=== PATIENT | female | born 1935 | race African-American/Black ===

== ENCOUNTER 2016-10-16 17:32 | Inpatient (IN) | payer OTHER ==
[~2016-10-16] VITALS: Ht 172.7 cm; Wt 134.1 kg
--- NOTE | ~2016-10-16 | EKG ---
[address] [address] ELECTROCARDIOGRAM REPORT Name: GERALD PABONESSA Miya Room #: 170-2 ADM IN M.R.#: [id number] Admission: 10/16/16 Attend Phys: Claudy Lopez MD Discharge: Date of : 37 Report #: [id number] THIS REPORT FOR: //name// [facility] ED Test Date: 2016-10-16 Test Time: 17:37:22 Pat Name: KAROL PABON Department: Room: 170 Gender: F [employer]: [id number] : 1935 Requested By: Katrina Clancy Order Number: [id number] MD: Carlos Navarro Measurements Intervals [place] Rate: 68 P: 28 CO: 265 QRS: -19 QRSD: 154 T: 31 QT: 441 QTc: 470 Interpretive Statements Sinus rhythm Atrial premature complex Prolonged [place] interval Right bundle branch block Compared to ECG 04/30/2016 11:19:53 First degree AV block now present Sinus tachycardia no longer present Electronically Signed On 10-16-2016 22:11:00 CDT by Carlos Navarro [email or web address] <ELECTRONICALLY SIGNED> By: Carlos Navarro MD 10/16/16 2211 1737 1737 Carlos Navarro MD /EPI
[2016-10-16 17:32] VITALS: BP 147/75
[~2016-10-16 17:32] MED LIST: ACETAMINOPHEN325 M1 PO; ADVAIR 500-501 EACH INH; ALBUTEROL2.5 MG/0.5 INH; ALBUTEROL2.5 MG/31; ALBUTEROL2.5 MG/32 INH; AMBIEN 5 MG TABL5 M1 PO; AMOXICILLIN 50500 MG PO; ANTIFUNGAL CREA28 GM TOP; ARTIFICIAL TEAR15 M1 OPHTHALMIC; ASPIRIN EC81 M1 PO; ATIVAN0.5 MG PO; AUGMENTIN 875875 MG PO; BAYER CHEWABLE81 MG PO; BIOFREEZE118 ML TP; BISACODYL SUPP10 MG RECTAL; BREO ELLIPTA 21 EACH IH; CALMOSEPTINE OI71 GM TOP; CARDIZEM CD240 MG PO; CEFTIN 250250 MG/52 PO; CEFTIN500 MG PO; CEPACOL SORE T1 EAC7 PO; CEPASTAT CHERR18 TA2 PO; CLONIDINE0.1 PO; CODEINE SULFATE30 MG PO; COLACE100 MG PO; DEMADEX20 MG PO; DETROL LA4 MG PO; DEX4 GLUCOSE1 EACH PO; DICLOFENAC-MIS1 EAC1 PO; DOXYCYCLINE 10100 MG PO; DUONEB 2.5-0.5 M3 ML INH; ENOXAPARIN30 MG/0.3 SUBQ; ENOXAPARIN40 MG/0.1 SUBQ; ENOXAPARIN40 MG/0.4 SQ; FISH OIL 1,001000 M2 PO; FLEXERIL PO; FLONASE 0.05%50 MCG NASAL; GERI-MOX ANTAC355 ML; GLUCAGEN1 M2 SUBQ; GLUCOPHAGE XR500 MG PO; GLUCOPHAGE1000 MG PO; GLUCOPHAGE500 MG PO; GLUCOSE 40% GEL15 GM PO; GLUCOSE GEL38 GM PO; GLYCOLAX POWDER17 G1 PO; HUMALOG100 UNIT/1 SUBQ; HYDROCODON-ACE1 EAC7 PO; HYDROCODONE-AP1 EAC6 PO; HYDROXYZINE HCL25 M1 PO; I-CAPS AREDS S1 EACH PO; IRON325 PO; JUVEN PACKET1 EACH; LACTULOSE10 GM/153 PO; LANTUS100 UNIT/M SUBQ; LASIX 40 MG TAB40 M1 PO; LEVAQUIN 500 M500 M1 PO; LEVEMIR SUBQ; LEVOTHROID100 MC1 PO; LEVOTHYROXINE0.2 M1; LEVOXYL100 MCG PO; LIDODERM 5%1 PATCH TRANSDERM; LOPRESSOR25 PO; MACROBID 100 M100 M1 PO; MAGOX 400400 MG PO; METFORMIN HCL500 MG PO; MILK OF MA2400 MG/10 PO; MIRALAX255 GM PO; MOM PO; MONTELUKAST SOD10 MG PO; MUCINEX TA600 MG/TA2 PO; MULTI VITAMIN1 EACH PO; MULTIVITAMINS; NEURONTIN 300300 M1 PO; NEURONTIN600 MG; NEXIUM40 MG PO; NORCO 10-325 T1 EACH PO; NORVASC 2.5 MG2.5 M1 PO; NOVOLOG100 UNIT/1 SUBQ; NYSTATIN 100,0015 G1 TOP; NYSTATIN 100,0015 GM TOP; OCUVITE EYE +1 EACH PO; OMEPRAZOLE 20 M20 M1 PO; OSELB75 PO; OXYBUTYNIN 5 MG5 M1 PO; OXYBUTYNIN CHLO10 MG; PEPCID20 MG PO; POTASSIUM20 PO; PREDNISONE 10 M10 MG PO; PREDNISONE 20 M20 M1 PO; PREDNISONE 20 M20 MG PO; PROAIR RESPICL90 MCG PO; RESTASIS1 EACH OPHTHALMIC; ROBITUSSIN100 MG/53 PO; SENOKOT-S1 TA1 PO; SIMETHICON CHEW80 M1 PO; SINGULAIR 10 MG10 MG PO; SKIN PROTECTAN113 GM TOP; SPIRIVA INH; TESSALON PERLE100 MG PO; THEOPHYLLINE E100 MG; THEOPHYLLINE S200 M1 PO; TOBRADEX EYE DRO5 ML OPHTHALMIC; TOPROL XL100 MG PO; TRAMADOL HCL50 MG PO; TUMS CHEWA500 MG/11 PO; UNIPHYL400 MG PO; VALIUM5 MG; VESICARE 5 MG TA5 MG PO; VITAMIN D-32000 UNIT PO; VITAMIN E400 UNIT PO; VITAMINC500 PO; VOLTAREN GEL 1100 G2 TOP; ZINC SULFATE 2220 M1; [UNRECOGNIZED DRUG - OTHER] TOP
[2016-10-16 18:19] LABS: URINE BILIRUBIN NEGATIVE (Negative); URINE BLOOD NEGATIVE (Negative); URINE COLOR YELLOW; URINE GLUCOSE-RANDOM* NEGATIVE (Negative); URINE KETONES NEGATIVE (Negative); URINE NITRITE NEGATIVE (Negative); URINE PROTEIN (DIPSTICK) NEGATIVE (Negative); URINE SPECIFIC GRAVITY <= 1.005 (1.003-1.035); URINE UROBILINOGEN 0.2 E.U./dl (0.2-1.0)
[2016-10-16 18:28] LABS: BACTERIA >30 Many /HPF (None Seen); CASTS None Seen /LPF (None Seen); CRYSTALS None Seen /LPF (None Seen); SQUAMOUS >10 Many /LPF (0-3); URINE RBC 0-2 Rare /HPF (0-2); URINE WBC 6-15 Few /HPF (0-5)
[2016-10-16 18:55] LABS: ABSOLUTE NEUTROPHILS 4.9 thou/uL (1.4-8.2); BASOPHILS 0.3 % (0.0-2.0); EOSINOPHILS 2.1 % (0.0-3.0); HEMATOCRIT 37.4 % (37.0-47.0); HEMOGLOBIN 12.2 gm/dL (12.0-15.0); LYMPHOCYTES 28.7 % (24.0-44.0); MCH 27.9 pg (26.0-34.0); MCHC 32.6 g/dL (28.0-37.0); MCV 85.6 fL (80.0-100.0); MONOCYTES 8.2 % (1.0-8.0); PLATELET COUNT 246 thou/uL (150-400); POLYS 60.7 % (36.0-66.0); RBC 4.37 mil/uL (4.20-5.00); WBC 8.1 thou/uL (4.0-11.0)
[2016-10-16 18:57] LABS: MANUAL DIFF NO
[2016-10-16 19:07] LABS: ANION GAP 8 mmol/L (7-16); BUN 12 mg/dL (7-18); CALCIUM 10.4 mg/dL (8.5-10.1); CHLORIDE 98 mmol/L (98-107); CO2 29 mmol/L (21-32); CREATININE 1.3 mg/dL (0.6-1.0); GLUCOSE 110 mg/dL (74-106); POTASSIUM 3.9 mmol/L (3.5-5.1); SODIUM 135 mmol/L (136-145)
[2016-10-16 19:14] LABS: ALBUMIN 3.4 g/dL (3.4-5.0); ALKALINE PHOSPHATASE 82 U/L (46-116); SGOT 19 U/L (15-37); SGPT 29 U/L (30-65); TOTAL BILIRUBIN 0.2 mg/dL (<0.1-1.0); TROPONIN-I < 0.04 ng/mL (<0.04-0.07)
[2016-10-16 22:26] VITALS: BP 138/63
[2016-10-17] MEDS ORDERED: THEOPHYLLINE E100 MG PO (00:09)
[2016-10-17] MEDS ORDERED: GUAIFENESIN ER600 MG PO (00:13)
[2016-10-17] MEDS ORDERED: FISH OIL 1,001000 M2 PO (00:16)
[2016-10-17] MEDS ORDERED: NEURONTIN 300300 M1 PO (00:22)
[2016-10-17] MEDS ORDERED: LIDODERM 5%1 PATC1 TRANSDERM (00:26)
[2016-10-17] MEDS ORDERED: NITROGLYCERIN0.4 MG SUBLING (00:28)
[2016-10-17] MEDS ORDERED: LOPERAMIDE 2 MG2 M1 PO (00:29)
[2016-10-17] MEDS ORDERED: ONDANSETRON HCL4 M2 PO (00:31)
[2016-10-17 04:00] VITALS: BP 117/66
[2016-10-17 04:18] LABS: CALCIUM 9.8 mg/dL (8.5-10.1); CREATININE 1.2 mg/dL (0.6-1.0); POTASSIUM 3.9 mmol/L (3.5-5.1)
[2016-10-17 07:03] VITALS: BP 127/64
[2016-10-17 16:16] VITALS: BP 137/75
[2016-10-17 20:15] VITALS: BP 124/52
[2016-10-18 03:27] VITALS: BP 147/83
[2016-10-18 06:29] LABS: BASOPHILS 0.4 % (0.0-2.0); EOSINOPHILS 2.6 % (0.0-3.0); HEMATOCRIT 36.9 % (37.0-47.0); HEMOGLOBIN 12.2 gm/dL (12.0-15.0); LYMPHOCYTES 34.2 % (24.0-44.0); MCH 28.2 pg (26.0-34.0); MCHC 33.1 g/dL (28.0-37.0); MCV 85.2 fL (80.0-100.0); MONOCYTES 9.8 % (1.0-8.0); PLATELET COUNT 239 thou/uL (150-400); RBC 4.33 mil/uL (4.20-5.00); WBC 5.7 thou/uL (4.0-11.0)
[2016-10-18 06:41] LABS: CALCIUM 10.2 mg/dL (8.5-10.1); CREATININE 1.2 mg/dL (0.6-1.0); POTASSIUM 4.3 mmol/L (3.5-5.1)
[2016-10-18 06:55] LABS: MANUAL DIFF NO
[2016-10-18 08:00] VITALS: BP 131/77
[2016-10-18 16:00] VITALS: BP 131/83
[2016-10-18 19:28] VITALS: BP 154/80
[2016-10-19 03:43] VITALS: BP 142/71
[2016-10-19 03:56] LABS: ABSOLUTE NEUTROPHILS 3.9 thou/uL (1.4-8.2); BASOPHILS 0.2 % (0.0-2.0); EOSINOPHILS 2.7 % (0.0-3.0); HEMATOCRIT 35.8 % (37.0-47.0); HEMOGLOBIN 11.8 gm/dL (12.0-15.0); LYMPHOCYTES 30.4 % (24.0-44.0); MCHC 33.1 g/dL (28.0-37.0); MCV 84.6 fL (80.0-100.0); MONOCYTES 9.9 % (1.0-8.0); PLATELET COUNT 238 thou/uL (150-400); POLYS 56.8 % (36.0-66.0); RBC 4.23 mil/uL (4.20-5.00); RDW 14.9 % (10.5-14.5); WBC 6.9 thou/uL (4.0-11.0)
[2016-10-19 03:58] LABS: MANUAL DIFF NO
[2016-10-19 04:08] LABS: CALCIUM 10.1 mg/dL (8.5-10.1); CREATININE 1.3 mg/dL (0.6-1.0); MAGNESIUM 2.1 mg/dL (1.8-2.4); POTASSIUM 4.2 mmol/L (3.5-5.1)
[2016-10-19 07:52] VITALS: BP 151/75
[2016-10-19] MEDS ORDERED: LANTUS100 UNIT/M SUBQ (11:35)
[2016-10-19] MEDS ORDERED: ANTIVERT25 MG PO ×2 (11:35)
[2016-10-19] MEDS ORDERED: PROBIOTIC1 EAC1 PO (11:35)
[2016-10-19] MEDS ORDERED: AUGMENTIN 875875 MG PO (11:35)
[2016-10-19] MEDS ORDERED: MUPIROCIN22 GM NASAL (11:52)
[2016-10-19] MEDS ORDERED: MACROBID 100 M100 M1 PO (12:03)
[2016-10-19 14:06] VITALS: BP 131/69
== END 2016-10-19 14:35 | DRG 690 ==
LOC: ER 17:32 → EROBS 20:24 → 3N 20:24
PROVIDERS: Internal Medicine Endocrinology, Diabetes & Metabolism; Nurse Practitioner; Nurse Practitioner Acute Care; Physician Assistant
DX: N39.0 Urinary tract infection, site not specified (principal); N17.9 Acute kidney failure, unspecified; I50.32 Chronic diastolic (congestive) heart failure; J96.10 Chronic respiratory failure, unspecified whether with hypoxia or hypercapnia; E86.0 Dehydration; E89.0 Postprocedural hypothyroidism; Z96.651 Presence of right artificial knee joint; K21.9 Gastro-esophageal reflux disease without esophagitis; M19.90 Unspecified osteoarthritis, unspecified site; F32.9 Major depressive disorder, single episode, unspecified; E11.40 Type 2 diabetes mellitus with diabetic neuropathy, unspecified; J44.9 Chronic obstructive pulmonary disease, unspecified; B96.20 Unspecified Escherichia coli [E. coli] as the cause of diseases classified elsewhere; N18.3 Chronic kidney disease, stage 3 (moderate); E11.22 Type 2 diabetes mellitus with diabetic chronic kidney disease; Z79.899 Other long term (current) drug therapy; Z87.891 Personal history of nicotine dependence; Z98.41 Cataract extraction status, right eye; Z88.2 Allergy status to sulfonamides; Z98.42 Cataract extraction status, left eye; Z85.3 Personal history of malignant neoplasm of breast; Z90.710 Acquired absence of both cervix and uterus; Z88.8 Allergy status to other drugs, medicaments and biological substances
CPT/HCPCS: 10096

== ENCOUNTER 2016-12-02 03:48 | Emergency (ER) | payer OTHER ==
[~2016-12-02] VITALS: Ht 175.3 cm; Wt 136.1 kg
--- NOTE | ~2016-12-02 | EKG ---
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 MCKEON : 1935 Requested By: Uriel Haney Order Number: [id number] MD: Alexis Lee Measurements Intervals [place] Rate: 89 P: 65 [place]: 254 QRS: -24 QRSD: 160 T: 33 QT: 387 QTc: 471 Interpretive Statements Sinus rhythm Atrial premature complex Prolonged [place] interval Right bundle branch block Compared to ECG 10/16/2016 17:37:22 No significant changes Electronically Signed On 12-04-2016 9:25:08 CDT by Alexis Lee [email or web address] <ELECTRONICALLY SIGNED> By: Alexis Lee MD, [facility] 12/04/16 0925 0 0 Alexis Lee MD, [facility] /EPI
[~2016-12-02 03:48] MED LIST changes: +ANTIVERT25 MG PO; +GUAIFENESIN ER600 MG PO; +LIDODERM 5%1 PATC1 TRANSDERM; +LOPERAMIDE 2 MG2 M1 PO; +MUPIROCIN22 GM NASAL; +NITROGLYCERIN0.4 MG SUBLING; +ONDANSETRON HCL4 M2 PO; +PROBIOTIC1 EAC1 PO; +THEOPHYLLINE E100 MG PO
[2016-12-02] MEDS ORDERED: CEFUROXIME500 MG (04:10)
[2016-12-02] MEDS ORDERED: DUONEB 2.5-0.5 M3 ML INH (04:11)
[2016-12-02] MEDS ORDERED: PREDNISONE 10 M10 MG PO (04:11)
[2016-12-02] MEDS ORDERED: MUCINEX TA600 MG/TA2 PO (04:11)
[2016-12-02] MEDS ORDERED: KRISTALOSE20 GM PO (04:13)
[2016-12-02] MEDS ORDERED: OCUVITE EYE +1 EACH PO (04:21)
[2016-12-02 04:29] LABS: ABSOLUTE NEUTROPHILS 8.2 thou/uL (1.4-8.2); BASOPHILS 0.8 % (0.0-2.0); EOSINOPHILS 0.6 % (0.0-3.0); HEMATOCRIT 37.7 % (37.0-47.0); HEMOGLOBIN 12.5 gm/dL (12.0-15.0); LYMPHOCYTES 23.7 % (24.0-44.0); MCH 27.7 pg (26.0-34.0); MCHC 33.1 g/dL (28.0-37.0); MCV 83.5 fL (80.0-100.0); MONOCYTES 5.2 % (1.0-8.0); PLATELET COUNT 264 thou/uL (150-400); POLYS 69.7 % (36.0-66.0); RBC 4.51 mil/uL (4.20-5.00); RDW 16.2 % (10.5-14.5); WBC 12.9 thou/uL (4.0-11.0)
[2016-12-02 04:31] LABS: MANUAL DIFF NO
[2016-12-02 04:35] LABS: ANION GAP 14 mmol/L (7-16); BUN 17 mg/dL (7-18); CALCIUM 10.6 mg/dL (8.5-10.1); CHLORIDE 96 mmol/L (98-107); CO2 24 mmol/L (21-32); CREATININE 1.5 mg/dL (0.6-1.0); GLUCOSE 176 mg/dL (74-106); POTASSIUM 4.4 mmol/L (3.5-5.1); SODIUM 134 mmol/L (136-145)
[2016-12-02] MEDS ORDERED: ARTIFICIAL TEA1 EACH OP (04:36)
[2016-12-02 04:40] LABS: APTT 20.1 Seconds (24.5-32.8); PROTIME 10.4 Seconds (9.3-11.4)
[2016-12-02] MEDS ORDERED: TESSALON PERLE100 M1 PO (04:40)
[2016-12-02 04:44] LABS: ALBUMIN 3.8 g/dL (3.4-5.0); ALKALINE PHOSPHATASE 81 U/L (46-116); MAGNESIUM 1.5 mg/dL (1.8-2.4); SGOT 26 U/L (15-37); SGPT 29 U/L (30-65); TOTAL BILIRUBIN 0.4 mg/dL (<0.1-1.0); TOTAL PROTEIN 7.7 g/dL (6.4-8.2); TROPONIN-I < 0.04 ng/mL (<0.04-0.07)
[2016-12-02] MEDS ORDERED: MAG-OXIDE400 MG PO (05:32)
[2016-12-02] MEDS ORDERED: PREDNISONE 20 M20 MG PO (05:32)
[2016-12-02] MEDS ORDERED: ZPAK PO (05:32)
== END 2016-12-02 20:33 | disposition home or self-care (01) ==
LOC: ER 03:48
PROVIDERS: Emergency Medicine
DX: J20.9 Acute bronchitis, unspecified (principal); J45.909 Unspecified asthma, uncomplicated; F32.9 Major depressive disorder, single episode, unspecified; K21.9 Gastro-esophageal reflux disease without esophagitis; E03.9 Hypothyroidism, unspecified; J44.9 Chronic obstructive pulmonary disease, unspecified; I50.9 Heart failure, unspecified; E11.9 Type 2 diabetes mellitus without complications; G62.9 Polyneuropathy, unspecified; Z85.3 Personal history of malignant neoplasm of breast; Z90.710 Acquired absence of both cervix and uterus; Z87.440 Personal history of urinary (tract) infections; Z85.53 Personal history of malignant neoplasm of renal pelvis; Z88.8 Allergy status to other drugs, medicaments and biological substances; Z88.2 Allergy status to sulfonamides; Z88.6 Allergy status to analgesic agent; Z87.891 Personal history of nicotine dependence

== ENCOUNTER 2016-12-04 02:39 | Inpatient (IN) | payer OTHER ==
[~2016-12-04] VITALS: Ht 172.7 cm; Wt 128.0 kg
[2016-12-04] VITALS (7 sets, daily range): BP systolic 129–161; BP diastolic 49–85
--- NOTE | ~2016-12-04 | S ---
[facility] [place] [address] SURGICAL PATH RPT PROCEDURE Name: KAROL PABON Room #: 455-P [facility] IN M.R.#: [id number] Admission: 12/04/16 Date of : 37 Discharge: Report #: [id number] Path Case #: [id number] PATHOLOGY REPORT COLLECTION DATE: 12/05/2016 RECEIVED DATE: 12/06/2016 SUBMITTING PHYS: Dr. Eileen Millan OTHER PHYS: Dr. Neri Kerr SPECIMEN(S) RECEIVED: A.Polypectomy at ascending colon x3 B.Bx of polyp at transverse * * * * * * * * * * * * FINAL DIAGNOSIS: A. Polyp, at ascending colon, endoscopic biopsy: - Tubular adenoma. - Negative for high-grade dysplasia. B. Polyp, at transverse, endoscopic biopsy: - Compatible with hyperplastic polyp. - Negative for dysplasia. (IUV:lety; 12/07/2016) PATHOLOGIST: Angie Pinto M.D. REPORT ELECTRONICALLY SIGNED BY: Angie Pinto M.D. DATE/TIME: 12/07/2016 16:36 * * * * * * * * * * * * GROSS PATHOLOGY: A. Received in formalin labeled "Karol Pabon, polyp at ascending colon," is a 0.5 x 0.4 x 0.4 cm polypoid piece of [place] soft tissue. The margin is inked and the tissue is sectioned perpendicular to the margin and submitted in its entirety in cassette A1. Additionally received in formalin labeled "Karol Pabon, polyp at ascending colon," is a segment of [place]on soft tissue measuring 0.4 cm in maximum dimension. The specimen is submitted entirely in cassette A1. After filtration of the specimen, no additional tissue was recovered. B. Received in formalin labeled "Karol Pabon, BX of polyp at transverse," is a segment of [place] soft tissue measuring 0.5 cm in maximum dimension. The specimen is submitted entirely in cassette B1. (TSD; 12/06/2016) [address] [address] SURGICAL PATH RPT PROCEDURE Name: KAROL PABON Room #: 455-P [facility] IN M.R.#: [id number] Admission: 12/04/16 Date of : 37 Discharge: Report #: [id number] Path Case #: [id number] CLINICAL HISTORY: Pre-OP DX: GI bleed, anemic Post-OP DX: Diverticulosis, ascending colon polyps INITIAL CPT CODE(S): A; 17111 B; 28836 Professional services performed by [facility] [address], [place] [address] Technical services performed by [facility] at [address] [place] [address], [address], [place] [address]. [facility] [address] [address] [place] [address] PHONE: [phone] DIRECTOR: Myron W. Eliazar, M.D. * * * END OF REPORT * * *
--- NOTE | ~2016-12-04 | P ---
[facility] [place] [address] PROCEDURE REPORT Name: KAROL PABON Room #: 455-P ADM IN M.R.#: [id number] Admission: 12/04/16 Attend Phys: Patel Snow MD Discharge: Date of : 37 Report #: [id number] THIS REPORT FOR: //name// CC: Venkata Kerr MD PROCEDURE: Colonoscopy with snare polypectomies and biopsies. She is a patient of Dr. Patel Snow. PRIMARY DOCTOR: Rohini Kerr MD INDICATION FOR PROCEDURE: The patient has had hematochezia that is painless, uncertain etiology. Informed consent for this procedure was obtained prior to the administration of any medication. The risks of the procedure, which include bleeding, perforation, infection, complications of sedation and the possibility I could miss something have been explained to the patient and she has indicated her consent by signing. Propofol was slowly titrated before and during this procedure for the patient comfort by the anesthesia service. The [employer] colonoscope was introduced through the anal sphincter and advanced under direct visualization to the ileocecal valve. Findings are noted on withdrawal of the scope. A quick peek into the distal ileum showed that there was no blood up in this structure. There is some red blood that is scattered throughout the entire colon. We tried to remove as much of this we could and were successful in clearing most of the areas out. Her colonic prep was poor in some areas and large mucosa lesions could have been missed, but for the most part, I think we were able to move the stool around and visualize the mucosa that was underneath it. In the cecum, the mucosa was normal. Ascending colon, multiple uncomplicated diverticula noted throughout the colon starting in the proximal ascending colon. There were 3 sessile polyps in the distal ascending colon that were removed in toto with a hot snare and sent to pathology lab. Good hemostasis was noted after all those polypectomies. The largest, which was 10 mm in size was lost after it was removed in some residual stool and I could not locate it again to remove it. The hepatic flexure itself appears normal. Transverse colon and the proximal transverse colon, there is a small 3-4 mm polyp removed in toto with the regular biopsy forceps and sent to pathology lab. Good hemostasis was noted after that polypectomy. The remaining transverse colonic mucosa appears normal except for uncomplicated diverticulosis. Sigmoid colon, normal mucosa. [address] [address] PROCEDURE REPORT Name: KAROL PABON Room #: 455-P [facility] IN [facility]#: [id number] Admission: 12/04/16 Attend Phys: Patel Snow MD Discharge: Date of : 37 Report #: [id number] Descending colon, uncomplicated diverticulosis was noted. It should be noted that there was some brighter red blood from the mid transverse through the splenic flexure. Descending colon, multiple uncomplicated diverticula noted. Sigmoid colon, multiple uncomplicated diverticula are noted. Rectum, normal mucosa. Retroflex view did not reveal any abnormalities. Scope was withdrawn. The patient went to the recovery area in stable condition. She tolerated the procedure well. IMPRESSION: 1. uncomplicated diverticulosis coli. 2. Colon polyps removed as above times 4 and sent to pathology with the loss of the large 10 mm polyp in the ascending colon. I saw no evidence of colitis. There was blood in the diverticulosis and it is difficult to know, which one was actually bleeding because there was no active bleeding during this colonoscopy. My recommendations were to monitor her closely. We will await the path report and monitor her H and H and stools. Thank you very much once again for allowing me to participate in her care. <ELECTRONICALLY SIGNED> By: Eileen Millan DO 12/06/16 0541 1802 2347 Eileen Millan DO /nt
--- NOTE | ~2016-12-04 | EKG ---
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 12/04/16 1754 D: [id number] 2 Alexis Lee MD, [facility] /EPI
[~2016-12-04 02:39] MED LIST changes: +ARTIFICIAL TEA1 EACH OP; +CEFUROXIME500 MG; +KRISTALOSE20 GM PO; +MAG-OXIDE400 MG PO; +TESSALON PERLE100 M1 PO; +ZPAK PO
[2016-12-04 03:18] LABS: ABSOLUTE NEUTROPHILS 9.4 thou/uL (1.4-8.2); BASOPHILS 0.3 % (0.0-2.0); HEMATOCRIT 34.7 % (37.0-47.0); HEMOGLOBIN 11.3 gm/dL (12.0-15.0); LYMPHOCYTES 17.4 % (24.0-44.0); MCH 27.7 pg (26.0-34.0); MCHC 32.6 g/dL (28.0-37.0); MCV 84.8 fL (80.0-100.0); MONOCYTES 8.9 % (1.0-8.0); PLATELET COUNT 304 thou/uL (150-400); POLYS 73.4 % (36.0-66.0); RBC 4.09 mil/uL (4.20-5.00); RDW 16.6 % (10.5-14.5); WBC 12.9 thou/uL (4.0-11.0)
[2016-12-04 03:20] LABS: MANUAL DIFF NO
[2016-12-04 03:48] LABS: CREATININE 1.5 mg/dL (0.6-1.0); DIRECT BILIRUBIN 0.1 mg/dL (<0.1-0.3); TOTAL BILIRUBIN 0.3 mg/dL (<0.1-1.0)
[2016-12-04 03:49] LABS: ALBUMIN 3.5 g/dL (3.4-5.0); TOTAL PROTEIN 6.7 g/dL (6.4-8.2)
[2016-12-04 04:08] LABS: POTASSIUM 4.6 mmol/L (3.5-5.1)
[2016-12-04 04:59] LABS: URINE BILIRUBIN NEGATIVE (Negative); URINE BLOOD NEGATIVE (Negative); URINE COLOR YELLOW; URINE GLUCOSE-RANDOM* NEGATIVE (Negative); URINE KETONES NEGATIVE (Negative); URINE NITRITE POSITIVE (Negative); URINE PROTEIN (DIPSTICK) NEGATIVE (Negative); URINE UROBILINOGEN 0.2 E.U./dl (0.2-1.0)
[2016-12-04 05:07] LABS: BACTERIA >30 Many /HPF (None Seen); CASTS None Seen /LPF (None Seen); CRYSTALS None Seen /LPF (None Seen); SQUAMOUS None Seen /LPF (0-3); URINE RBC 0-2 Rare /HPF (0-2); URINE WBC 0-5 Rare /HPF (0-5)
[2016-12-04 06:02] LABS: HEMATOCRIT 33.8 % (37.0-47.0); HEMOGLOBIN 11.1 gm/dL (12.0-15.0)
[2016-12-04 10:17] LABS: APTT 25.1 Seconds (24.5-32.8); INR 1.1
[2016-12-04 12:18] LABS: HEMATOCRIT 31.3 % (37.0-47.0); HEMOGLOBIN 10.5 gm/dL (12.0-15.0)
[2016-12-04 18:28] LABS: HEMATOCRIT 31.1 % (37.0-47.0); HEMOGLOBIN 10.4 gm/dL (12.0-15.0)
[2016-12-05 00:19] LABS: HEMATOCRIT 30.6 % (37.0-47.0); HEMOGLOBIN 10.1 gm/dL (12.0-15.0)
[2016-12-05 03:22] VITALS: BP 137/71
[2016-12-05 08:26] VITALS: BP 150/73
[2016-12-05 12:24] VITALS: BP 129/55
[2016-12-05 19:31] VITALS: BP 125/73
[2016-12-06 04:16] VITALS: BP 126/63
[2016-12-06 06:14] LABS: HEMATOCRIT 27.7 % (37.0-47.0); HEMOGLOBIN 9.3 gm/dL (12.0-15.0); MCH 28.3 pg (26.0-34.0); MCHC 33.5 g/dL (28.0-37.0); MCV 84.5 fL (80.0-100.0); RBC 3.28 mil/uL (4.20-5.00); RDW 16.1 % (10.5-14.5); WBC 8.8 thou/uL (4.0-11.0)
[2016-12-06 06:26] LABS: CALCIUM 9.3 mg/dL (8.5-10.1); CREATININE 1.1 mg/dL (0.6-1.0); POTASSIUM 3.9 mmol/L (3.5-5.1)
[2016-12-06 09:50] VITALS: BP 128/65
[2016-12-06 18:27] VITALS: BP 135/65
[2016-12-06 20:30] VITALS: BP 179/71
[2016-12-07 06:05] LABS: HEMATOCRIT 25.3 % (37.0-47.0); HEMOGLOBIN 8.5 gm/dL (12.0-15.0); MCH 28.5 pg (26.0-34.0); MCHC 33.5 g/dL (28.0-37.0); MCV 85.2 fL (80.0-100.0); RBC 2.97 mil/uL (4.20-5.00); RDW 16.1 % (10.5-14.5); WBC 7.8 thou/uL (4.0-11.0)
[2016-12-07 06:14] LABS: CALCIUM 9.1 mg/dL (8.5-10.1); CREATININE 1.2 mg/dL (0.6-1.0); POTASSIUM 4.1 mmol/L (3.5-5.1)
[2016-12-07 07:57] VITALS: BP 168/81
[2016-12-07 11:11] VITALS: BP 157/77
[2016-12-07 15:30] VITALS: BP 138/60
[2016-12-07 18:59] VITALS: BP 142/75
[2016-12-08 04:40] VITALS: BP 145/75
[2016-12-08 06:01] LABS: HEMATOCRIT 26.3 % (37.0-47.0); HEMOGLOBIN 8.5 gm/dL (12.0-15.0); MCHC 32.5 g/dL (28.0-37.0); MCV 86.1 fL (80.0-100.0); RBC 3.05 mil/uL (4.20-5.00); RDW 16.1 % (10.5-14.5); WBC 8.1 thou/uL (4.0-11.0)
[2016-12-08 06:12] LABS: CALCIUM 9.4 mg/dL (8.5-10.1); CREATININE 1.1 mg/dL (0.6-1.0); POTASSIUM 3.8 mmol/L (3.5-5.1)
[2016-12-08 07:25] VITALS: BP 157/95
[2016-12-08 12:34] VITALS: BP 128/55
[2016-12-08 16:28] VITALS: BP 114/56
[2016-12-08 19:15] VITALS: BP 131/78
[2016-12-09 04:08] VITALS: BP 110/85
[2016-12-09 05:26] LABS: HEMATOCRIT 27.6 % (37.0-47.0); MCHC 32.6 g/dL (28.0-37.0); MCV 85.9 fL (80.0-100.0); RBC 3.21 mil/uL (4.20-5.00); RDW 16.5 % (10.5-14.5); WBC 7.8 thou/uL (4.0-11.0)
[2016-12-09 05:48] LABS: CALCIUM 9.4 mg/dL (8.5-10.1); CREATININE 1.1 mg/dL (0.6-1.0); POTASSIUM 3.5 mmol/L (3.5-5.1)
[2016-12-09 08:08] VITALS: BP 124/51
[2016-12-09 15:30] VITALS: BP 116/49
[2016-12-09 21:22] VITALS: BP 145/71
[2016-12-10 00:39] VITALS: BP 129/56
[2016-12-10 04:28] VITALS: BP 164/68
[2016-12-10 06:24] LABS: HEMATOCRIT 28.6 % (37.0-47.0); HEMOGLOBIN 9.4 gm/dL (12.0-15.0); MCHC 32.8 g/dL (28.0-37.0); MCV 85.6 fL (80.0-100.0); RBC 3.34 mil/uL (4.20-5.00); RDW 16.6 % (10.5-14.5); WBC 7.1 thou/uL (4.0-11.0)
[2016-12-10 06:33] LABS: CALCIUM 9.5 mg/dL (8.5-10.1); CREATININE 1.2 mg/dL (0.6-1.0); POTASSIUM 3.9 mmol/L (3.5-5.1)
[2016-12-10 08:09] VITALS: BP 159/69
[2016-12-10 11:55] VITALS: BP 132/67
[2016-12-10] MEDS ORDERED: LEVAQUIN 500 M500 M2 PO (12:27)
== END 2016-12-10 16:19 | DRG 377 ==
LOC: ER 02:39 → 4W 04:29 → EROBS 04:29 → 4W 05:16
PROVIDERS: Emergency Medicine; Hospitalist; Nurse Practitioner Acute Care
DX: K57.31 Diverticulosis of large intestine without perforation or abscess with bleeding (principal); N17.0 Acute kidney failure with tubular necrosis; J96.11 Chronic respiratory failure with hypoxia; E87.2 Acidosis; D12.2 Benign neoplasm of ascending colon; D12.3 Benign neoplasm of transverse colon; E11.22 Type 2 diabetes mellitus with diabetic chronic kidney disease; N18.3 Chronic kidney disease, stage 3 (moderate); E89.0 Postprocedural hypothyroidism; E89.2 Postprocedural hypoparathyroidism; F32.9 Major depressive disorder, single episode, unspecified; M19.90 Unspecified osteoarthritis, unspecified site; E11.40 Type 2 diabetes mellitus with diabetic neuropathy, unspecified; K21.9 Gastro-esophageal reflux disease without esophagitis; I50.9 Heart failure, unspecified; K64.8 Other hemorrhoids; Z96.642 Presence of left artificial hip joint; J44.9 Chronic obstructive pulmonary disease, unspecified; Z87.891 Personal history of nicotine dependence; Z90.710 Acquired absence of both cervix and uterus; Z98.42 Cataract extraction status, left eye; Z98.41 Cataract extraction status, right eye; Z88.2 Allergy status to sulfonamides; Z88.8 Allergy status to other drugs, medicaments and biological substances; Z86.711 Personal history of pulmonary embolism; Z79.84 Long term (current) use of oral hypoglycemic drugs; Z79.51 Long term (current) use of inhaled steroids; Z79.4 Long term (current) use of insulin; Z79.899 Other long term (current) drug therapy
CPT/HCPCS: 10045; 62110; 62900; 70005

== ENCOUNTER 2017-05-14 15:46 | Emergency (ER) | payer OTHER ==
[~2017-05-14] VITALS: Ht 172.7 cm; Wt 129.3 kg
--- NOTE | ~2017-05-14 | EKG ---
[address] [address] [employer] [place] [place] [address] ELECTROCARDIOGRAM REPORT Name: KAROL PABON [facility] [id number] Admission: 05/14/17 Attend Phys: Discharge: 05/14/17 Date of : 37 Report #: [id number] THIS REPORT FOR: //name// [facility] ED Test Date: 2017-05-14 Test Time: 16:25:53 Pat Name: KAROL PABON Department: Room: Gender: F Dental Director: KRISSY : 1935 Requested By: Sergey Bob Order Number: [id number] MD: Alexis Lee Measurements Intervals [place] Rate: 82 P: 15 [place]: 257 QRS: -39 QRSD: 152 T: 22 QT: 398 QTc: 465 Interpretive Statements Sinus rhythm Atrial premature complex Prolonged [place] interval Right bundle branch block Compared to ECG 02/22/2017 01:15:39 First degree AV block now present Electronically Signed On 05-15-2017 9:01:16 FEED MANAGER by Alexis Lee [email or web address] <ELECTRONICALLY SIGNED> By: Alexis Lee MD, [facility] 05/15/17 0901 1625 1625 Alexis Lee MD, [facility] /EPI
[~2017-05-14 15:46] MED LIST changes: +BREO ELLIPTA 21 EACH INH; +CALAZIME TOP; +CENTRUM SILVER1 EAC4 PO; +CIPRO500 MG PO; +GERI-LANTA LIQ355 ML PO; +IMODIUM A-D2 M1; +LEVAQUIN 500 M500 M2 PO; +MEDROL DOSPAK21 TA1 PO; +MUCINEX600 MG PO; +PRED FORTE 1% EY5 M1 OPHTHALMIC; +SILVADENE TOP; +SYSTANE ULTRA 010 ML OPHTHALMIC; +TRIAMCINOLONE A80 G2 TOP
[2017-05-14 16:40] LABS: ABSOLUTE NEUTROPHILS 5.1 thou/uL (1.4-8.2); BASOPHILS 0.6 % (0.0-2.0); EOSINOPHILS 0.2 % (0.0-3.0); HEMATOCRIT 31.1 % (37.0-47.0); HEMOGLOBIN 10.2 gm/dL (12.0-15.0); LYMPHOCYTES 12.7 % (24.0-44.0); MCH 25.1 pg (26.0-34.0); MCHC 32.7 g/dL (28.0-37.0); MCV 76.8 fL (80.0-100.0); MONOCYTES 6.3 % (1.0-8.0); PLATELET COUNT 335 thou/uL (150-400); POLYS 80.2 % (36.0-66.0); RBC 4.05 mil/uL (4.20-5.00); RDW 18.4 % (10.5-14.5); WBC 6.3 thou/uL (4.0-11.0)
[2017-05-14 16:52] LABS: CALCIUM 9.3 mg/dL (8.5-10.1); CREATININE 1.2 mg/dL (0.6-1.0); POTASSIUM 4.4 mmol/L (3.5-5.1)
[2017-05-14 16:58] LABS: ALBUMIN 3.3 g/dL (3.4-5.0); TOTAL BILIRUBIN 0.4 mg/dL (<0.1-1.0); TOTAL PROTEIN 6.8 g/dL (6.4-8.2)
[2017-05-14] MEDS ORDERED: VOLTAREN GEL 1100 G2 TOP (17:19)
[2017-05-14] MEDS ORDERED: MAGOX 400400 MG PO (17:35)
[2017-05-14] MEDS ORDERED: LANTUS SOL100 UNIT/1 SQ (17:41)
[2017-05-14] MEDS ORDERED: SYSTANE1 EACH OPHTHALMIC (17:42)
[2017-05-14] MEDS ORDERED: OMEPRAZOLE 20 M20 M1 PO (17:42)
[2017-05-14] MEDS ORDERED: OXYCONTIN10 M1 PO (17:43)
[2017-05-14 18:05] LABS: URINE BILIRUBIN NEGATIVE (Negative); URINE BLOOD NEGATIVE (Negative); URINE CLARITY CLEAR; URINE COLOR YELLOW; URINE GLUCOSE-RANDOM* NEGATIVE (Negative); URINE KETONES NEGATIVE (Negative); URINE PROTEIN (DIPSTICK) NEGATIVE (Negative); URINE SPECIFIC GRAVITY 1.015 (1.005-1.035); URINE UROBILINOGEN 0.2 E.U./dl (0.2-1.0)
[2017-05-14 18:07] LABS: URINE LEUKOCYTES-REFLEX 1+ (Negative); URINE NITRITE-REFLEX POSITIVE (Negative)
[2017-05-14 18:43] LABS: BACTERIA-REFLEX >30 Many /HPF (None Seen); CRYSTALS None Seen /LPF (None Seen); HYALINE CASTS 0-3 Few /LPF (None Seen); MUCUS 4-6 Moderate strn/LPF (None Seen); SQUAMOUS >10 Many /LPF (0-3); URINE RBC 0-2 Rare /HPF (0-2); URINE WBC-REFLEX >25 Many /HPF (0-5); WBC CLUMPS Few (None Seen)
[2017-05-14] MEDS ORDERED: CEFUROXIME250 MG PO (18:54)
[2017-05-14 20:57] VITALS: BP 119/82
== END 2017-05-14 20:57 | disposition home or self-care (01) ==
LOC: ER 15:46
PROVIDERS: Physician Assistant
DX: N39.0 Urinary tract infection, site not specified (principal); E11.22 Type 2 diabetes mellitus with diabetic chronic kidney disease; N18.3 Chronic kidney disease, stage 3 (moderate); R05 Cough; E89.0 Postprocedural hypothyroidism; J44.9 Chronic obstructive pulmonary disease, unspecified; F32.9 Major depressive disorder, single episode, unspecified; K21.9 Gastro-esophageal reflux disease without esophagitis; I48.91 Unspecified atrial fibrillation; I50.9 Heart failure, unspecified; Z86.2 Personal history of diseases of the blood and blood-forming organs and certain disorders involving the immune mechanism; Z79.4 Long term (current) use of insulin; Z88.2 Allergy status to sulfonamides; Z90.710 Acquired absence of both cervix and uterus; Z88.8 Allergy status to other drugs, medicaments and biological substances; Z87.891 Personal history of nicotine dependence